=== PATIENT | male | born 1995 | race Caucasian/White ===

== ENCOUNTER 2018-05-10 17:22 | Emergency (ER) | payer SELFPAY ==
[~2018-05-10] VITALS: Ht 188 cm; Wt 82.2 kg
[2018-05-10 17:29] VITALS: BP 147/94
--- NOTE | 2018-05-10 17:37 | NUR ---
AFTER TRIAGE, PT STATED HE DID NOT WANT TO BE SEEN BY MD. STATED HE WANTED TO SEE HIS FATHER IN HIS HOTEL. PT LEFT ED AT THIS ITME.
== END 2018-05-10 17:40 | disposition left against medical advice (07) ==
LOC: ED 17:34
DX: Z53.21 Procedure and treatment not carried out due to patient leaving prior to being seen by health care provider (principal)